=== PATIENT | female | born 1995 | race Caucasian/White ===

== ENCOUNTER 2017-05-25 19:36 | Observation (INO) | payer OTHER ==
[2017-05-26] MEDS: ONDANSETRON 4 MG INJ IV (00:02)
[2017-05-26] MEDS: KETOROLAC 30 MG INJ IV (00:02)
[2017-05-26] MEDS: SOD CHLORIDE 0.9% 1,000 ML IV ×5 (00:02→23:40)
[2017-05-26 00:05] LABS: ADD MAN DIFF? NO
[2017-05-26 00:10] LABS: WHITE BLOOD COUNT 20.7 10^3/ul (4.8-10.8)
[2017-05-26 00:10] LABS: BASOPHIL # 0.1 10^3/ul (0.0-0.1); BASOPHILS % 0.2 % (0.0-2.0); HEMATOCRIT 39.9 % (37.0-47.0); HEMOGLOBIN 13.4 g/dl (12.0-16.0); LYMPHOCYTES # 1.5 10^3/ul (0.8-2.9); LYMPHOCYTES % 7.5 % (15.0-51.0); MEAN CORPUSCULAR HEMOGLOBIN 28.5 pg (29.0-33.0); MEAN CORPUSCULAR HGB CONC 33.6 g/dl (32.0-37.0); MEAN CORPUSCULAR VOLUME 84.9 fl (82.0-101.0); MEAN PLATELET VOLUME 9.5 fl (7.4-10.4); MONOCYTE # 0.8 10^3/ul (0.3-0.9); MONOCYTES % 3.7 % (0.0-11.0); NEUTROPHIL # 18.2 10^3/ul (1.6-7.5); NEUTROPHILS % 88.1 % (39.0-77.0); PLATELET COUNT 330 10^3/UL (140-415); RED CELL DISTRIBUTION WIDTH 12.6 % (11.5-14.5)
[2017-05-26 00:32] LABS: ALANINE AMINOTRANSFERASE 28 IU/L (13-69); ALBUMIN 5.3 g/dl (3.3-4.9); ALBUMIN/GLOBULIN RATIO 1.82; ALKALINE PHOSPHATASE 51 IU/L (42-121); ANION GAP 19 (8-16); ASPARTATE AMINO TRANSFERASE 19 IU/L (15-46); BILIRUBIN,INDIRECT 0.4 mg/dl (0-1.1); BILIRUBIN,TOTAL 0.4 mg/dl (0.2-1.3); BLOOD UREA NITROGEN 13 mg/dl (7-20); CALCIUM 10.5 mg/dl (8.4-10.2); CARBON DIOXIDE 20 mmol/L (21-31); CHLORIDE 104 mmol/L (97-110); CREATININE 0.78 mg/dl (0.44-1.00); GLUCOSE 117 mg/dl (70-220); LIPASE 95 U/L (23-300); POTASSIUM 4.6 mmol/L (3.5-5.1); SODIUM 138 mmol/L (135-144); TOTAL PROTEIN 8.2 g/dl (6.1-8.1)
[2017-05-26 01:14] LABS: ADD UMIC YES; UR ASCORBIC ACID 40 mg/dL (NEGATIVE); UR BACTERIA FEW /HPF (NONE SEEN); UR BILIRUBIN (Dip) NEGATIVE (NEGATIVE); UR BLOOD (Dip) NEGATIVE (NEGATIVE); UR CLARITY SLIGHTLY CLOUDY (CLEAR); UR COLOR YELLOW (YELLOW); UR GLUCOSE (Dip) NEGATIVE (NEGATIVE); UR KETONES (Dip) 1+ mg/dL (NEGATIVE); UR LEUKOCYTE ESTERASE (Dip) 3+ Leu/ul (NEGATIVE); UR MUCUS MODERATE /HPF (NONE SEEN); UR NITRITE (Dip) NEGATIVE (NEGATIVE); UR RBC 3 /HPF (0-5); UR SPECIFIC GRAVITY (Dip) 1.029 (1.003-1.030); UR SQUAMOUS EPITHELIAL CELL FEW /HPF (FEW); UR TOTAL PROTEIN (Dip) 1+ mg/dl (NEGATIVE); UR UROBILINOGEN (Dip) 1+ mg/dL (NEGATIVE); UR WBC 34 /HPF (0-5)
[2017-05-26 01:22] LABS: TROPONIN-I < 0.012 ng/ml (0.00-0.12)
[2017-05-26] MEDS: HYDROmorphONE 0.5 MG/0.5 ML SYG IV (01:40)
[2017-05-26] MEDS: PIPER-TAZO 3.375 GM IV (PMX) 100 ML IVPB ×4 (03:29→17:24)
[2017-05-26] MEDS ORDERED: HYDROmorphONE 0.5 MG/0.5 ML SYG IV (04:00)
[2017-05-26] MEDS ORDERED: NACL 0.9% 3 ML SYG IV (04:00)
[2017-05-26] MEDS ORDERED: ACETAMINOPHEN 325 MG TAB PO (04:00)
[2017-05-26] MEDS ORDERED: ONDANSETRON 4 MG INJ IV (04:00)
[2017-05-26] MEDS ORDERED: BISACODYL (EC) 5 MG TAB PO (04:00)
[2017-05-26] MEDS ORDERED: DOCUSATE SODIUM 100 MG CAP PO (04:00)
[2017-05-26 04:15] LABS: LACTIC ACID 1.8 mmol/L (0.5-2.0)
[2017-05-26 04:16] LABS: INR 1.05; PROTIME 13.8 Sec (11.9-14.9); PT RATIO 1.1
[2017-05-26 04:45] LABS: PARTIAL THROMBOPLASTIN TIME 25.1 Sec (25.0-35.0)
[2017-05-26] MEDS ORDERED: VANCOMYCIN IV PER PHARMACY XX (06:00)
[2017-05-26] MEDS: POLYETHYLENE GLYCOL 17 GM PACKET PO (06:40)
[2017-05-26 07:26] LABS: CHOL/HDL RATIO 3.1 RATIO; CHOLESTEROL 118 mg/dl (100-200); HDL CHOLESTEROL 37 mg/dl (33-83); LDL CHOLESTEROL,CALCULATED 74 mg/dl; TRIGLYCERIDES 37 mg/dl (0-149)
[2017-05-26 07:26] LABS: MAGNESIUM 1.5 mg/dl (1.7-2.5)
[2017-05-26 07:34] LABS: ADD MAN DIFF? NO
[2017-05-26 07:44] LABS: BASOPHILS % 0.1 % (0.0-2.0); HEMATOCRIT 26.9 % (37.0-47.0); HEMOGLOBIN 9.1 g/dl (12.0-16.0); LYMPHOCYTES # 1.7 10^3/ul (0.8-2.9); LYMPHOCYTES % 14.3 % (15.0-51.0); MEAN CORPUSCULAR HGB CONC 33.8 g/dl (32.0-37.0); MEAN CORPUSCULAR VOLUME 85.7 fl (82.0-101.0); MEAN PLATELET VOLUME 10.2 fl (7.4-10.4); MONOCYTE # 0.9 10^3/ul (0.3-0.9); MONOCYTES % 7.4 % (0.0-11.0); NEUTROPHIL # 9.4 10^3/ul (1.6-7.5); NEUTROPHILS % 77.9 % (39.0-77.0); PLATELET COUNT 220 10^3/UL (140-415); RED BLOOD COUNT 3.14 10^6/ul (4.20-5.40); RED CELL DISTRIBUTION WIDTH 12.8 % (11.5-14.5)
[2017-05-26 07:44] LABS: WHITE BLOOD COUNT 12.1 10^3/ul (4.8-10.8)
[2017-05-26 07:54] LABS: HEMOGLOBIN A1C 5.1 % (0-5.9)
[2017-05-26] MEDS: VANCOMYCIN 1 GM in 250 ML IVPB (08:10)
[2017-05-26] MEDS: MAGNESIUM SULFATE 2 GM/50 ML 50 ML IVPB (12:11)
[2017-05-26 12:12] LABS: ADD MAN DIFF? NO
[2017-05-26 12:21] LABS: BASOPHILS % 0.2 % (0.0-2.0); EOSINOPHILS % 0.3 % (0.0-7.0); HEMATOCRIT 25.8 % (37.0-47.0); HEMOGLOBIN 8.7 g/dl (12.0-16.0); LYMPHOCYTES # 2.8 10^3/ul (0.8-2.9); MEAN CORPUSCULAR HEMOGLOBIN 28.9 pg (29.0-33.0); MEAN CORPUSCULAR HGB CONC 33.7 g/dl (32.0-37.0); MEAN CORPUSCULAR VOLUME 85.7 fl (82.0-101.0); MEAN PLATELET VOLUME 9.8 fl (7.4-10.4); MONOCYTE # 0.8 10^3/ul (0.3-0.9); MONOCYTES % 8.1 % (0.0-11.0); NEUTROPHIL # 6.6 10^3/ul (1.6-7.5); PLATELET COUNT 191 10^3/UL (140-415); RED BLOOD COUNT 3.01 10^6/ul (4.20-5.40); RED CELL DISTRIBUTION WIDTH 12.9 % (11.5-14.5)
[2017-05-26 12:21] LABS: HEMATOCRIT 25.5 % (37.0-47.0); WHITE BLOOD COUNT 10.4 10^3/ul (4.8-10.8)
[2017-05-26] MEDS: VANCOMYCIN 750 MG in DEXTROSE 5% 150 ML IVPB (14:48)
[2017-05-27] MEDS: PIPER-TAZO 3.375 GM IV (PMX) 100 ML IVPB ×3 (00:05→11:29)
[2017-05-27 06:47] LABS: ADD MAN DIFF? NO
[2017-05-27 07:01] LABS: WHITE BLOOD COUNT 8.1 10^3/ul (4.8-10.8)
[2017-05-27 07:01] LABS: BASOPHILS % 0.2 % (0.0-2.0); EOSINOPHILS # 0.1 10^3/ul (0.0-0.5); EOSINOPHILS % 1.2 % (0.0-7.0); HEMATOCRIT 25.3 % (37.0-47.0); HEMOGLOBIN 8.2 g/dl (12.0-16.0); LYMPHOCYTES # 3.3 10^3/ul (0.8-2.9); LYMPHOCYTES % 40.8 % (15.0-51.0); MEAN CORPUSCULAR HEMOGLOBIN 28.5 pg (29.0-33.0); MEAN CORPUSCULAR HGB CONC 32.4 g/dl (32.0-37.0); MEAN CORPUSCULAR VOLUME 87.8 fl (82.0-101.0); MONOCYTE # 0.6 10^3/ul (0.3-0.9); MONOCYTES % 7.4 % (0.0-11.0); NEUTROPHIL # 4.1 10^3/ul (1.6-7.5); NEUTROPHILS % 50.2 % (39.0-77.0); PLATELET COUNT 181 10^3/UL (140-415); RED BLOOD COUNT 2.88 10^6/ul (4.20-5.40); RED CELL DISTRIBUTION WIDTH 13.2 % (11.5-14.5)
[2017-05-27] MEDS: SOD CHLORIDE 0.9% 1,000 ML IV (11:29)
[2017-05-27 13:45] LABS: HEMATOCRIT 28.2 % (37.0-47.0); HEMOGLOBIN 9.3 g/dl (12.0-16.0)
[2017-05-30] MEDS ORDERED: INFLUENZA VIRUS VACCINE 0.5 ML (DISPENSING) IM* (09:00)
== END 2017-05-27 16:17 | disposition home or self-care (01) ==
LOC: FTE 19:36 → MS3 05-26 03:34
DX: K66.1 Hemoperitoneum (principal); N83.202 Unspecified ovarian cyst, left side; N39.0 Urinary tract infection, site not specified; R91.1 Solitary pulmonary nodule; M41.9 Scoliosis, unspecified; F41.9 Anxiety disorder, unspecified; F32.9 Major depressive disorder, single episode, unspecified
CPT/HCPCS: 36415; 71250; 74176; 76830; 76856; 80053; 80061; 81001; 83036; 83605; 83690; 83735; 84443; 84484; 84703; 85014; 85018; 85025; 85610; 85730; 87040; 93005; 96365; 96366; 96375; 99217; 99285-25